=== PATIENT | male | born 1995 | race Caucasian/White ===

== ENCOUNTER → 2020-10-11 09:41 | Outpatient (BNVA) | payer OTHER, SELFPAY | PROVIDERS: Visit Provider Physician Assistant | DX: T88.0XXA Infection following immunization, initial encounter (principal) | CPT/HCPCS: 99203 ==

== ENCOUNTER 2020-10-25 19:04 | Emergency (ER) | payer BC, SELFPAY ==
[2020-10-25 19:13] VITALS: BP 157/71; PULSE 102; RESP 18; TEMP 36.9; O2SAT 98; BMI 21.8
--- NOTE | 2020-10-25 20:13 | ED.WOUNDLAC ---
HPI - Wound/Laceration General Chief Complaint: Wound/Laceration Stated Complaint: laceration Time Seen by Provider: 10/25/20 19:33 Source: patient Mode of arrival: ambulatory Limitations: no limitations History of Present Illness HPI narrative: Right thumb skin avulsion to the medial aspect occurred at home 2 hours prior to arrival. Superficial skin avulsion having hard time controlling the bleeding. Offers no other complaints. Up-to-date with tetanus vaccination. Onset (ago): hour(s) Related Data Allergies Allergy/AdvReac Type Severity Reaction Status Date / Time No Known Allergies Allergy Verified 10/25/20 19:13 Review of Systems Review of Systems: Constitutional: No Weight loss, No Fever, No Chills, No Night Sweats, No Fatigue, No Malaise ENT/Mouth: No Hearing loss, No Ear Pain, No Nasal Congestion, No Sinus Pain, No Hoarseness, No sore throat, No Rhinorrhea, No Swallowing Difficulty Eyes: No Eye Pain, No Swelling, No Redness, No Foreign Body, No Discharge, No Vision Changes Cardiovascular: Negative Respiratory: Negative Gastrointestinal: Negative Genitourinary: Negative Musculoskeletal: No joint pain, No Myalgias, No Joint Swelling Skin: No Skin Lesions, No rash Neuro: No Weakness, No Numbness, No Paresthesias, No Loss of Consciousness, No Dizziness, No Headache Psych: Negative Heme/Lymph: No Bruising Endocrine: Negative Yes all other systems are reviewed and are negative [facility] Social History Social History Advance Directives: No Advance Directives Information Provided: Yes Physical Exam Vital Signs: Vital Signs: Last Vital Signs Temp 98.5 F 10/25/20 19:13 Pulse 102 H 10/25/20 19:13 Resp 18 10/25/20 19:13 BP 157/71 H 10/25/20 19:13 Pulse Ox 98 10/25/20 19:13 Body Mass Index 21.8 Review Const: General: cooperative and healthy appearing; No acute distress or intoxicated appearing Nutritional Appearance: average body habitus Orientation/consciousness: patient oriented x3 HENMT: Head: Yes normal to inspection Ears: hearing grossly normal bilaterally Resp: Effort & Inspection: normal respiratory effort Cardio: Jugular venous distension: no JVD Skin: General skin exam: no rashes or lesions noted Neuro: General: patient oriented x3 Extrem: General: Yes normal to inspection Hand/finger images: 1. Less than 0.5 cm superficial skin avulsion to superficial dermis not involving deep tissue. Full range of motion. Neurovascularly intact. Slight oozing of blood. Procedures Procedure Narrative Procedure Narrative: Superficial skin avulsion to the right thumb site cleaned and covered with Surgicel with dry sterile dressing. No further bleeding. Discharge Plan Discharge Clinical Impression: Avulsion of skin of finger Qualifiers: Encounter type: initial encounter Qualified Code(s): S61.209A - Unspecified open wound of unspecified finger without damage to nail, initial encounter Patient Disposition: Home, Self-Care Instructions: Skin Avulsion (ED) Additional Instructions: Keep site clean and dry Change dressing daily Return if any concerns or worsening symptoms Thank you Referrals: Jake Rodriguez MD [Primary Care Provider] - 5 days Stand Alone Forms: Work/School Release
== END 2020-10-25 20:35 | disposition home or self-care (01) ==
PROVIDERS: Emergency Provider Emergency Medicine Emergency Medical Services; PCP Internal Medicine
DX: S61.001A Unspecified open wound of right thumb without damage to nail, initial encounter (principal); W45.8XXA Other foreign body or object entering through skin, initial encounter; Y93.9 Activity, unspecified; Y92.019 Unspecified place in single-family (private) house as the place of occurrence of the external cause; Y99.9 Unspecified external cause status
CPT/HCPCS: 12001; 99283

== ENCOUNTER 2022-11-28 16:06 | Emergency (ER) | payer OTHER, SELFPAY ==
[2022-11-28 16:14] VITALS: BP 159/79; PULSE 90; RESP 20; TEMP 36.8; O2SAT 99; BMI 21.8
--- NOTE | 2022-11-28 16:54 | ED_ITS ---
HPI - Wound/Laceration General Chief Complaint: Wound/Laceration Stated Complaint: lac on nose Time Seen by Provider: 11/28/22 16:18 Source: patient Mode of arrival: ambulatory Limitations: no limitations History of Present Illness HPI narrative: 27yoM presenting to the ER with complaints of a laceration to the bridge of his nose that occurred prior to arrival he was at home working on remodeling his bathroom floor. Reports he is up-to-date on tetanus. Denies any other injuries complaints or concerns at this time. Onset (ago): hour(s) (Prior to arrival) Location: face (Bridge of the nose) Place: home Patient tetanus UTD: Yes Context: accidental Associated symptoms: none Related Data Previous Rx's Medication Instructions Recorded cephalexin 500 mg capsule 500 mg PO BID 7 days #14 caps 11/28/22 Allergies Allergy/AdvReac Type Severity Reaction Status Date / Time No Known Allergies Allergy Verified 10/25/20 19:13 Review of Systems Review of Systems: Constitutional : No Fever, No Chills, Cardiovascular : No Chest Pain, No SOB Respiratory : No Dyspnea Gastrointestinal : No abdominal pain Musculoskeletal : No Joint Swelling Skin : positive skin laceration, No Foreign bodies, No rash, No surrounding erythema Neuro : No Weakness, No Numbness/tingling Psych : No SI/HI/thoughts of self injury Yes all other systems are reviewed and are negative [facility] Past Medical History Attestation statement: The following information was validated with the patient. Source: old records reviewed and nursing notes reviewed Physical Exam Vital Signs: Vital Signs: Last Vital Signs Temp 98.3 F 11/28/22 16:14 Pulse 90 11/28/22 16:14 Resp 20 11/28/22 16:14 BP 159/79 H 11/28/22 16:14 Pulse Ox 99 11/28/22 16:14 O2 Del Method 11/28/22 16:14 BMI result Body Mass Index 21.8 vital signs have been reviewed as normal and appeared to be correct. Blood pressure 159/79 Heart rate normal. Respiration rate normal. Temperature normal. Oxygen saturation normal. Appearance: Alert. Oriented X3. No acute distress. Head: Normal external exam. Normocephalic. Atraumatic. Eyes: PERRLA. EOMI. Conjunctiva and sclera normal. Eyelids normal. ENT: Pharynx normal. Uvula midline. Moist mucous membranes. Neck: Normal inspection. Neck supple. FROM. CVS: Normal heart rate and rhythm. Respiratory: No respiratory distress. Painless inspiration. Skin: Skin warm and dry. Normal skin color. Normal skin turgor. To the bridge of the nose patient has a linear A shape laceration to the bridge of his nose. No active bleeding or foreign bodies or bony tenderness noted. No additional rashes/lesions/lacerations noted. Extremities: Extremities exhibit normal range of motion. Extremities nontender. Neuro: Oriented X 3. No motor deficit. No sensory deficit. Reflexes normal. Normal steady gait. No focal neuro deficits noted. Vascular: + radial pulses/+ 2 distal pedal pulses/+2 dorsalis pedis b/l. Normal cap refill. No cyanosis noted to upper extremity nails and lower extremity toes nails. Course Course Course Narrative: Patient now status post laceration repair with 4 simple interrupted stitches placed. Patient reports tetanus is up-to-date. No imaging indicated at this time. Will DC home with symptomatic treatment antibiotics along with instructions to return in 10-14 days for suture removal and to follow up prior if signs of infection. Patient understands agrees the plan. Procedures Laceration Laceration 1: Site: face Size (cm): 1 Description: linear and irregular Depth: simple, single layer Local Anesthetic: lidocaine 1% Amount of anesthesia used (mL): 5 Pre-repair: wound explored, irrigated extensively and deep structures intact Skin layer closed with: nylon Size (cm): 5-0 Number of sutures: 4 Technique: simple, interrupted Discharge Plan Discharge Clinical Impression: Laceration Patient Disposition: Home, Self-Care Instructions: Facial Laceration (ED) Prescriptions: New cephalexin 500 mg capsule 500 mg PO BID 7 Days Qty: 14 0RF Referrals: Jake Rodriguez MD [Primary Care Provider] - Deepika Carpio PA [Emergency Midlevel Provider] - 5 days (Return in 5 days for suture remove)
[2022-11-28] MEDS: Lidocaine HCl 1 % MPF 5 ML VIAL SUBCUT (17:04)
--- NOTE | 2022-11-28 17:04 | PC.NURSE ---
ASSESSED SUTURES AN DISCHARGED BY PROVIDER
== END 2022-11-28 17:04 | disposition home or self-care (01) ==
LOC: HO.ED 17:03
PROVIDERS: Emergency Provider Emergency Medicine; PCP Internal Medicine
DX: S01.21XA Laceration without foreign body of nose, initial encounter (principal); W26.9XXA Contact with unspecified sharp object(s), initial encounter; Y93.9 Activity, unspecified; Y92.002 Bathroom of unspecified non-institutional (private) residence as the place of occurrence of the external cause; Y99.9 Unspecified external cause status
CPT/HCPCS: 12011; 99281; 99284